=== PATIENT | female | born 1965 | race Caucasian/White ===

== ENCOUNTER 2016-11-26 03:27 | Inpatient (IN) | payer OTHER ==
[~2016-11-26] VITALS: Ht 180.3 cm; Wt 113.5 kg
[~2016-11-26 03:27] MED LIST: ESCI5TAB PO; LISI10TA PO; ONDA8TAB7 PO; PANT40TA3 PO; SUCR1TAB30 PO
[2016-11-26 03:34] VITALS: PULSE 121; RESP 20; O2SAT 98
--- NOTE | 2016-11-26 03:50 | ED.REPORT ---
HPI-Abd Pain F 40 and Over Date of Service Nov 26, 2016 ED Provider: Ferdinand Crump MD Ms. aCgle is a 51 y/o woman who presents today for abdominal pain that started on Tuesday and has worsened tonight at 8:30 PM. It is LUQ and radiates around in a band to her back on the left and to her RUQ. She has a history of pancreatitis and today feels similar to that. She has nausea and vomiting. It is non-bloody emesis. She does not have fever, chills, diarrhea, or dysuria. It gets worse with eating. She has not had much to eat for the past 3 days. In the past when she had pancreatitis, she had to be hospitalized for 7 days and the cause was not identified. She had a CT scan done in 02/2016. She does not drink alcohol and has not missed medications. Nursing Notes Stated Complaint: ABDOMINAL PAIN Chief Complaint: Female Abdominal Pain Nursing Notes Reviewed: Yes Allergies: Coded Allergies: lactose (Verified Adverse Reaction, Severe, 11/26/16) "It makes me sick" Scheduled Escitalopram Oxalate (Lexapro) 5 Mg Tablet 20 MG PO DAILY Gabapentin (Gabapentin) 300 Mg Capsule 300 MG PO TID Lisinopril (Lisinopril) 10 Mg Tablet 10 MG PO BID Scheduled PRN Ondansetron ODT (Zofran ODT) 8 Mg Tablet 8 MG PO Q8H PRN PRN For Nausea Pantoprazole DR (Pantoprazole DR) 40 Mg Tablet.dr 80 MG PO BID PRN PRN For Dyspepsia or Heartburn General Time Seen by MD: 03:47 Chief Complaint Abdominal pain Hx Obtained From: Patient Sudden in Onset?: No Severity: Current: Severe Exacerbated by: Eating Pertinent Negative: Relieved by nothing Past Medical History Past Medical History pancreatitis anxiety GERD hypertension Past Surgical History hiatal hernia repair umbilical hernia repair Reports: Cholecystectomy Smoking History Never Smoker Social History Alcohol Use: Denies alcohol use Drug Use: Denies drug use Other Social History: Ambulatory Status Independent Review of Systems Basic Review of Systems Hematologic: No bleeding, No bruising Skin: No bruising, No rash, No itch Neurologic: NL mental status, No weakness, No numbness Psychiatric: Normal thought content Constitutional: Denies: Chills, Fever Respiratory: Denies: Non-productive cough, Shortness of breath Cardiovascular: Denies: Chest pain, Edema GI: Reports: Abdominal pain, Nausea, Vomiting, Denies: Bloody/tarry stool, Constipation, Diarrhea, Hematemesis, Hematochezia , Melena Female: Denies: Dysuria, Hematuria, Urinary frequency, Urinary urgency, Vaginal bleeding - abnl Musculoskeletal: Reports: Back pain Physical Exam Vital Signs Vital Signs (First) Date Time Temp Pulse Resp B/P Pulse Ox O2 Delivery O2 Flow Rate FiO2 11/26/16 03:34 36.6 121 20 98 Room Air Initial VS: Reviewed Head / Eyes: Atraumatic, Normocephalic ENT: Mucous membranes moist, Conjunctiva normal, No scleral icterus Skin: Warm, Dry, No cyanosis Neurologic: Alert, Oriented, Nonfocal Psychiatric: Mood/affect normal, Behavior normal, Normal thought content Respiratory / Chest: Breath sounds NL, Breath sounds = bilat, No respiratory distress, No rales, No rhonchi, No wheezing Cardiovascular: Heart rate NL, Regular rhythm, Heart sounds NL, No gallop, No murmurs, No rubs Abdomen: Soft, No guarding, No rebound, BS normoactive, No distention, No palpable mass Tenderness/Guarding/Rebound: Positive: Tender LUQ... (Mild) Interpretation & Diagnostics Interpretation & Diagnostics: CT abdomen and pelvis with contrast production supervisor off shift radiology report shows a mildly dilated biliary tree but no obstructing abnormalities seen. Stranding is seen around the pancreas with mild dilated dictation of the main pancreatic duct. On the anterior aspect of the body of the pancreas there is a cystic mass measuring approximately 1.6 x 1.9 x 4 cm. There is minimal fluid around the pancreas extending into the adjacent retroperitoneal space in the mesentery. There is a 17 mm nonobstructing stone in the right renal pelvis. Scattered colonic diverticulosis without evidence of diverticulitis. Conclusion: mild changes of pancreatitis. There is a cystic lesion in the body of the pancreas which probably represents a pseudocyst. This may need follow-up to confirm. There is no evidence of necrosis or other acute complication. Nonobstructing stone in the right renal pelvis. Diverticulosis. Lab Results Interpretation Result Diagram: 11/26/16 0407 11/26/16 0407 Test 11/26/16 04:07 White Blood Count 13.4th/mm3 (3.8-10.1) Red Blood Count 4.99mil/mm3 (3.90-5.20) Hemoglobin 14.0g/dL (12.0-15.6) Hematocrit 43.4% (35.0-46.0) Mean Corpuscular Volume 87.0fL (81-100) Mean Corpuscular Hemoglobin 28.1pg (27.0-35.0) Mean Corpuscular Hemoglobin Concent 32.3% (32.0-37.0) Red Cell Distribution Width 14.6% (12.3-15.4) Platelet Count 249bil/L (150-400) Neutrophils (%) (Auto) 82.0% (40-74) Lymphocytes (%) (Auto) 11.5% (14-46) Monocytes (%) (Auto) 5.2% (4-12) Eosinophils (%) (Auto) 1.0% (0-5) Basophils (%) (Auto) 0.1% (0-3) Sodium Level 140mEq/L (134-144) Potassium Level 3.8mEq/L (3.5-5.2) Chloride Level 101mEq/L (97-108) Carbon Dioxide Level 24mmol/L (18-29) Blood Urea Nitrogen 10mg/dL (6-24) Creatinine 0.65mg/dL (0.57-1.00) Estimat Glomerular Filtration Rate 138mL/min (>59) Glucose Level 180mg/dL (60-99) Calcium Level 8.8mg/dL (8.5-10.1) Magnesium Level 2.0mg/dL (1.6-2.6) Total Bilirubin 0.5mg/dL (0.0-1.2) Aspartate Amino Transf (AST/SGOT) 25U/L (0-50) Alanine Aminotransferase (ALT/SGPT) 35U/L (0-32) Alkaline Phosphatase 154U/L (25-150) Total Protein 7.7g/dL (6.4-8.4) Albumin 3.7g/dL (3.4-5.0) Triglycerides Level 109mg/dL (0-149) Cholesterol Level 163mg/dL (100-199) LDL Cholesterol, Calculated 101.200mg/dL (0-99) VLDL Cholesterol 21.800mg/dL HDL Cholesterol 40mg/dL (>39) Cholesterol/HDL Ratio 4.08 (0.0-4.4) Amylase Level 490U/L (28-100) Lipase 2224U/L (13-60) Hold Ko Top Tube Received (Received) Re-Eval/Medical Decision Med Decision/Clinical Course 1. pancreatitis -Pt has history of pancreatitis -Elevated lipase of 2224 and amylase of 490 today -WBC 13.4 elevated -Pt given 2 liters of normal saline -She is getting Dilaudid and Zofran as needed for pain and for nausea, respectively -Lipid panel within normal limits. -CT abdomen and pelvis shows mild changes of pancreatitis. There is a cystic lesion in the body of the pancreas which probably represents a pseudocyst. Nonobstructing stone in the right renal pelvis Discharge & Departure Shift Change Sign-Out Laboratory Evaluation: Back, reviewed by me Imaging Studies: Done, reviewed by me Primary Impression: Pancreatitis Chronicity: acute Pancreatitis type: unspecified pancreatitis type Qualified Code: K85.9 - Acute pancreatitis, unspecified Additional Impression: Pancreatic pseudocyst Disposition: ADMITTED TO HOSPITAL (accepted at 5:[address] Snowden) Discharge Condition All VS Reviewed: Yes Condition: Stable Referrals: Alona Carter MD (PCP) Attending Statement The patient was seen and examined together with Dr. Rufina Parks and I agree with the history, exam and plan as outlined in the note above. copies to: Alona Carter MD, Marissa L DO Nov 26, 2016 03:50 Ferdinand Crump MD Nov 26, 2016 13:28
[2016-11-26] MEDS: HYDROmorphone 0.5 mg/0.5 mL iSecure Syringe IVPUSH PRN ×3 (04:13→10:45)
[2016-11-26] MEDS: Ondansetron 2 mg/mL 2 mL Inj IVPUSH PRN ×5 (04:13→19:43)
[2016-11-26] MEDS ORDERED: 0.9% Sodium Chloride 1,000 ML IV ONE ×2 (04:15→05:30)
[2016-11-26 04:17] LABS: BASOPHILS % (AUTO) 0.1 % (0-3); MONOCYTES % (AUTO) 5.2 % (4-12); Mean Corpuscular Hemoglobin 28.1 pg (27.0-35.0); Platelet Count 249 bil/L (150-400)
[2016-11-26] MEDS ORDERED: 0.9% Sodium Chloride 1,000 ML IV SCH (06:12)
[2016-11-26] MEDS ORDERED: Alum-Mag Hydrox-Simeth 30 mL Suspension PO PRN ×2 (06:15→11:25)
[2016-11-26 06:39] VITALS: BP 154/93; PULSE 86; RESP 20; O2SAT 100
[2016-11-26 07:04] VITALS: BP 141/80; PULSE 85; RESP 20; O2SAT 97
[2016-11-26] MEDS ORDERED: GABA-502 PO (07:12)
--- NOTE | 2016-11-26 07:15 | NUR ---
Admit nurse: Pt admitted with symptoms of pancreatitis. Flu shot in Jul, reports lactose intolerance. Med rec completed, pt reports taking occasional supplements but is unable to remember names or dosages at this time.
[2016-11-26 08:28] VITALS: BP 153/89; PULSE 98; RESP 20
--- NOTE | 2016-11-26 09:06 | DRSVH ---
PROCEDURE: CT ABDOMEN AND PELVIS WITH CONTRAST (PNL-7102) INDICATIONS: LUQ pain, elevated lipase, possible pancreatitis TECHNIQUE: After the administration of intravenous contrast, 5 mm thick sections acquired from the diaphragm to the symphysis. 5 mm coronal and sagittal reformats were acquired. For radiation dose reduction, the following was used: automated exposure control, adjustment of mA and/or kV according to patient siz e. COMPARISON: [facility], CT, CT ANGIO CHEST PE, 03/15/2016, 8:33. [facility], CT, CT KUB, 03/14/2016, 7:48. [facility], CT, CT ABD PELVIS W CON, 03/13/2016, 2:16. FINDINGS: Image quality: Excellent. ABDOMEN: Lung bases: Lung bases are clear. Heart size is normal. Solid organs: There is peripancreatic stranding in pancreatic head and body consistent with acute pa ncreatitis. No pancreatic calcification. Pancreatic duct is mildly dilated measuring up to 5 mm. No e vidence for pancreatic necrosis. A 1.5 x 2.5 cm cyst is seen anterior to the body of the pancreas. In addition, there is a 8 mm cyst in the tail of the pancreas. Both may represent pseudocysts. Gallbladder is surgically absent. Liver and spleen are normal in size and enhancement. Common bile d uct is moderately dilated measuring up to 10 mm. There is mild intrahepatic biliary dilation. No adr enal nodules. Kidneys demonstrate normal size and enhancement. There is a 12 x 16 mm stone in the right renal pelv is. No hydronephrosis. Peritoneum and bowel: Multiple colonic diverticula are present. There is no evidence for acute diver ticulitis. Bowel loops demonstrate normal wall thickness and caliber. No free fluid or air. Nodes and vessels: No retroperitoneal or mesenteric adenopathy by size criteria. Aorta and inferior vena cava are normal in size. Miscellaneous: A small fat-containing periumbilical ventral hernia is noted. PELVIS: Genitourinary: Bladder wall thickness is normal. Miscellaneous: No inguinal hernias or adenopathy. Bones: No suspicious bony lesions. No vertebral body compression fractures. IMPRESSION: 1. Acute pancreatitis. There is mild pancreatic duct dilation. No evidence for pancreatic necrosis. T wo cysts are seen adjacent to the pancreas, suspicious for pancreatic pseudocyst. 2. Cholecystectomy. There is mild intrahepatic dilation and dilated common bile duct. Please correlat e with serum bilirubin for biliary obstruction. 3. A large non-obstructive stone in the right renal pelvis. 4. Diverticulosis. No active diverticulitis. No significant discrepancy with the dividend deposit entry clerk radiology preliminary report. Dictated by: Camryn Alvarado M.D. on 11/26/2016 at 8:49 Approved by: Camryn Alvarado M.D. on 11/26/2016 at 9:04
[2016-11-26] MEDS ORDERED: Polyethylene Glycol (PEG) 17 Gm Powder PO PRN (11:25)
[2016-11-26] MEDS: Dextrose 5% 0.45% NaCl 1,000 ML IV SCH ×2 (12:06→23:11)
[2016-11-26 13:54] LABS: APPEARANCE,URINE HAZY (CLEAR,HAZY); COLOR,URINE YELLOW (YELLOW); OCCULT BLOOD,URINE MODERATE (NEGATIVE); PH,URINE 5.5 (5.0-8.0)
[2016-11-26 13:55] LABS: UROBILINOGEN,URINE NORMAL (NORMAL)
[2016-11-26 14:33] VITALS: BP 148/84; PULSE 85; RESP 20; O2SAT 99
--- NOTE | 2016-11-26 15:25 | NUR ---
Social Work Screen Note: Patient is a 51 year old female admitted on 11/26/16 for pancreatitis. Patient payer as [employer]. Patient PCP as MD Carter. Patient has extermination supervisor disability. Patient has no VA benefits. Patient resides in [facility] with Julián, who is able to provide support and care. Patient resides in single [place]. [facility]. Patient has no previous HHC, SNF, or DME history. Patient states that she still drives and is independent with needs at home. Patient has no AD and declined form. Patient states having no identified discharge needs at this time. SW to follow if further needs arise. SW to follow. PLAN: Home with , via POV, pending clinical course Maribel VELOZ
--- NOTE | 2016-11-26 16:53 | NUR ---
GI/ACTIVITY Patient rated her pain as 9/10 on her L abdomen. Dilaudid IVP administered, which has been helpful. She complains of nausea and has been retching. No emesis at this time. Zofran was already administered. Not effective at this time. MD made aware. Denies SOB. Patient was able to ambulate with SBA in the room. Gait is steady. Voiding without any problems. Addendum: 11/26/16 at 1702 by KAREN ANTUNEZ RN PAIN Dilaudid was switched to Morphine IV. Morphine 2-4 mg IVP administered for complaints of pain, which was helpful.
[2016-11-26] MEDS ORDERED: hydrALAZINE 20 mg/mL Inj IV PRN (18:55)
--- NOTE | 2016-11-26 18:59 | PCM.HPMED ---
Subjective Date of Service Nov 26, 2016 Primary Provider: Admitting Physician: Abhi Snowden MD Primary Care Physician: Alona Carter MD Attending Physician: Abhi Snowden MD Chief Complaint: abdominal pain History of Present Illness: 51 year old female with Hypertension, Obesity, Anxiety and first episode of pancreatitis about one year ago of unclear etiology at the time who presents to the ED complaining of severe epigastric abdominal pain, nausea and dry heaves that started about 2-3 days ago. Denies any new medications, alcohol use or travels. Allergies Coded Allergies: lactose (Verified Adverse Reaction, Severe, 11/26/16) "It makes me sick" Home Medications Lisinopril 10 Mg PO BID 30 Days Escitalopram Oxalate 20 Mg PO DAILY 30 Days Gabapentin 300 Mg PO TID Ondansetron ODT 8 Mg PO Q8H PRN Pantoprazole DR 80 Mg PO BID PRN Exam Vital Signs & I/O Vital Sign- Last 8 Hours Date Time Temp Pulse Resp B/P Pulse Ox O2 Delivery O2 Flow Rate FiO2 11/26/16 14:33 36.8 85 20 148/84 99 Room Air Intake and Output- Last 8 Hour 11/26/16 Cumulative From/Thru 07:00 11/26/16 03:34 - 11/26/16 05:37 Intake Total 2000 ml 2000 ml Balance 2000 ml 2000 ml IV Total 2000 ml 2000 ml Lab & Micro Results Laboratory Tests Test 11/26/16 04:07 11/26/16 13:28 White Blood Count 13.4th/mm3 (3.8-10.1) Red Blood Count 4.99mil/mm3 (3.90-5.20) Hemoglobin 14.0g/dL (12.0-15.6) Hematocrit 43.4% (35.0-46.0) Mean Corpuscular Volume 87.0fL (81-100) Mean Corpuscular Hemoglobin 28.1pg (27.0-35.0) Mean Corpuscular Hemoglobin Concent 32.3% (32.0-37.0) Red Cell Distribution Width 14.6% (12.3-15.4) Platelet Count 249bil/L (150-400) Neutrophils (%) (Auto) 82.0% (40-74) Lymphocytes (%) (Auto) 11.5% (14-46) Monocytes (%) (Auto) 5.2% (4-12) Eosinophils (%) (Auto) 1.0% (0-5) Basophils (%) (Auto) 0.1% (0-3) Sodium Level 140mEq/L (134-144) Potassium Level 3.8mEq/L (3.5-5.2) Chloride Level 101mEq/L (97-108) Carbon Dioxide Level 24mmol/L (18-29) Blood Urea Nitrogen 10mg/dL (6-24) Creatinine 0.65mg/dL (0.57-1.00) Estimat Glomerular Filtration Rate 138mL/min (>59) Glucose Level 180mg/dL (60-99) Calcium Level 8.8mg/dL (8.5-10.1) Magnesium Level 2.0mg/dL (1.6-2.6) Total Bilirubin 0.5mg/dL (0.0-1.2) Aspartate Amino Transf (AST/SGOT) 25U/L (0-50) Alanine Aminotransferase (ALT/SGPT) 35U/L (0-32) Alkaline Phosphatase 154U/L (25-150) Total Protein 7.7g/dL (6.4-8.4) Albumin 3.7g/dL (3.4-5.0) Triglycerides Level 109mg/dL (0-149) Cholesterol Level 163mg/dL (100-199) LDL Cholesterol, Calculated 101.200mg/dL (0-99) VLDL Cholesterol 21.800mg/dL HDL Cholesterol 40mg/dL (>39) Cholesterol/HDL Ratio 4.08 (0.0-4.4) Amylase Level 490U/L (28-100) Lipase 2224U/L (13-60) Hold Ko Top Tube Received (Received) Urine Color Yellow (YELLOW) Urine Appearance Hazy (CLEAR,HAZY) Urine pH 5.5 (5.0-8.0) Urine Specific [place] 1.020 (1.003-1.035) Urine Protein Negativemg/dL (NEG,TRACE) Urine Glucose (UA) Negativemg/dL (NEGATIVE) Urine Ketones Tracemg/dL (NEGATIVE) Urine Occult Blood Moderate (NEGATIVE) Urine Nitrite Negative (NEGATIVE) Urine Bilirubin Negative (NEGATIVE) Urine Urobilinogen Normalmg/dL (NORMAL) Urine Leukocyte Esterase Negative (NEGATIVE) Urine RBC 0-2/hpf (0-2) Urine WBC 0-5/hpf (0-5) Urine Epithelial Cells Occasional/hpf (NONE-MOD) Urine Crystals None seen (NONE SEEN) Urine Bacteria Few/hpf (NONE-FEW) Urine Hyaline Casts None/lpf (NONE) Urine Granular Casts None seen (NONE SEEN) Urine Waxy Casts None seen (NONE SEEN) Urine Red Blood Cell Casts None seen (NONE SEEN) Urine White Blood Cell Casts None seen (NONE SEEN) Urine Mucus None seen (None Seen) Urine Trichomonas None seen (NONE SEEN) Urine Yeast None (NONE SEEN) Urinalysis Comment None Urine Culture Reflexed Not indicated Result Diagram: 11/26/1640611/26/16406 Review of Systems: Constitutional: Negative, except as otherwise mentioned in the history above. Ophthalmologic: Negative, except as otherwise mentioned in the history above. Cardiovascular: Negative, except as otherwise mentioned in the history above. Respiratory: Negative, except as otherwise mentioned in the history above. Gastrointestinal: Negative, except as otherwise mentioned in the history above. Genitourinary: Negative, except as otherwise mentioned in the history above. Musculoskeletal: Negative, except as otherwise mentioned in the history above. Neurological: Negative, except as otherwise mentioned in the history above. Psychiatric: Negative, except as otherwise mentioned in the history above. Hematologic/Lymphatic: Negative, except as otherwise mentioned in the history above. Allergic/Immunologic: Negative, except as otherwise mentioned in the history above. PMH Hypertension Obesity Depression GERD Head aches Chronic back pain due to spinal stenosis Anxiety Biliary dyskinesia Pancreatitis (first episode in February 2016) Surgical History Lap Cholecystectomy 05/02/15 Family History No history of Colon Cancer, No Pancreatic cancers Father was smoker and from lung cancer in his 60's Social History Hx Alcohol Use: No Hx Substance Use: No Hx Tobacco Use: No Smoking Status: Never Smoker Exam Vital Signs Vital Sign - Last Date Time Temp Pulse Resp B/P Pulse Ox O2 Delivery O2 Flow Rate FiO2 11/26/16 14:33 36.8 85 20 148/84 99 Room Air Intake and Output 11/25/16 11/25/16 11/26/16 Cumulative From/Thru 15:00 23:00 07:00 11/26/16 03:34 - 11/26/16 05:37 Intake Total 2000 ml 2000 ml Balance 2000 ml 2000 ml IV Total 2000 ml 2000 ml Exam General: Alert, Oriented X3, Cooperative, Moderate acute Distress Eyes: PERRLA, Scleral Anicteric Mouth: Mouth Normal, Mucous Membranes Moist/[place] Neck: Supple, no Thyromegaly, trachea central. Chest & Lungs: Clear to auscultation & percussion, No adventitious breath sounds, no crackles, no wheeze Cardiovascular: Normal S1, Normal S2, No Murmurs/Rubs/Gallops, Regular Rate/ Rhythm, (No JVD, no peripheral edema) Pulses: Radial (present and equal), Dorsalis Pedi (present and equal) Abdomen: Obese, Diffuse epigastric pain, mild guarding but no rebound. Normal bowel tones Musculoskeletal: Unremarkable. Normal range of motion, no swollen or erythematous joints Extremities: No edema, no cyanosis, no clubbing. Skin: No rashes. Warm and dry, no erythematous areas. NO Carlos or Trivedi signs Neurological: Grossly neurologically intact, Normal Speech, Sensation Intact Lymphatic: Lymph nodes Cervical and Axillary not palpable. Lab and Diagnostics Result Diagram: 11/26/1640611/26/16406 X-Rays, CTs and MRIs Date of Service: 11/26/16529 PROCEDURE: CT ABDOMEN AND PELVIS WITH CONTRAST ([id number]) IMPRESSION: 1. Acute pancreatitis. There is mild pancreatic duct dilation. No evidence for pancreatic necrosis. Two cysts are seen adjacent to the pancreas, suspicious for pancreatic pseudocyst. 2. Cholecystectomy. There is mild intrahepatic dilation and dilated common bile duct. Please correlate with serum bilirubin for biliary obstruction. 3. A large non-obstructive stone in the right renal pelvis. 4. Diverticulosis. No active diverticulitis. No significant discrepancy with the operation shift supervisor radiology preliminary report. Dictated by: Camryn Alvarado M.D. on 11/26/2016 at 8:49 Approved by: Camryn Alvarado M.D. on 11/26/2016 at 9:04 Assessment & Plan 50 year old female with Hypertension, Obesity, Anxiety who presents to the ED complaining of sudden onset severe epigastric abdominal pain. # Acute Pancreatitis. Present on admission - Etiology is unclear but possibly due to side effect Lisinopril. No Alcohol use and she has no gallbladder and no Hypertriglyceridemia - nothing my mouth except ice and sips of water - pain control with IV morphine as needed - IV fluids resuscitations - consider Gastroenterology consult if no improvement 2. Leukocytosis. Acute - possible early signs of Systemic Inflammatory Response due to Pancreatitis - monitor closely for any signs of infections 3. Hypertension - elevated due to pain - stop Lisinopril for now - cover with prn IV Hydralazine for now 4. Depression - continuing Lexapro 5. Obesity - pt has lost weight recently with modifying diet - Acetaminophen as needed for mild pain/fever/headache - Bowel regimen as needed - Antiemetic as needed Patient admitted under inpatient status with expected length of stay > 2 midnights for severity of present symptoms, complexities of treatment plan and risk for adverse event . Resuscitation Status: CPR: Attempt Resuscitation (discussed and verified with patient) GI Prophylaxis: Proton Pump Inhibitor VTE Prophylaxis: Sub-Q Heparin (Unfractionated) VTE Mechanical Devices: Intermittant Pneumatic CD Resuscitation Status: CPR: Attempt Resuscitation Time spent 60 min Jorge Alas Nov 26, 2016 18:59
[2016-11-26 20:05] VITALS: BP 148/88; PULSE 76; RESP 20; O2SAT 93
[2016-11-26] MEDS: Insulin Human REGular 300 Unit/3 mL Inj SUBQ SCH (21:12)
--- NOTE | 2016-11-26 22:16 | NUR ---
PAIN Nausea and Pain reported start of shift 07/10. PRNs effective. IV site became occluded, IV therapy notified, new IV site started. Independently OOB frequently.
[2016-11-27 00:43] VITALS: BP 141/84; PULSE 75; RESP 18; O2SAT 96
[2016-11-27] MEDS: Dextrose 5% 0.45% NaCl 1,000 ML IV SCH ×2 (01:29→13:47)
[2016-11-27] MEDS: Insulin Human REGular 300 Unit/3 mL Inj SUBQ SCH ×3 (03:51→14:30)
[2016-11-27 05:07] VITALS: BP 124/77; PULSE 80; RESP 18; O2SAT 96
[2016-11-27 06:27] LABS: Mean Corpuscular Hemoglobin 27.4 pg (27.0-35.0); Mean Corpuscular Volume 87.2 fL (81-100)
[2016-11-27 07:02] LABS: INR 1.11 ratio
[2016-11-27] MEDS ORDERED: Pantoprazole 4 mg/mL 10 mL Inj IVPUSH SCH (07:30)
[2016-11-27] MEDS: MetoCLOpramide 5 mg/mL 2 mL Inj IVPUSH PRN ×2 (08:35→14:37)
[2016-11-27 09:31] VITALS: BP 143/84; PULSE 75; RESP 18; O2SAT 98
[2016-11-27] MEDS: Ondansetron 2 mg/mL 2 mL Inj IVPUSH PRN ×4 (10:48→19:52)
[2016-11-27 12:42] VITALS: BP 160/92; PULSE 81; RESP 18; O2SAT 99
--- NOTE | 2016-11-27 15:49 | PCM.PNMED ---
Subjective Date of Service Nov 27, 2016 Subjective reports worsening abdominal pain today. no n/v/diarrhea Exam Vital Signs Vital Sign - Last Date Time Temp Pulse Resp B/P Pulse Ox O2 Delivery O2 Flow Rate FiO2 11/27/16 12:42 36.9 81 18 160/92 99 Room Air Intake and Output 11/26/16 11/26/16 11/27/16 Cumulative From/Thru 15:00 23:00 07:00 11/26/16 03:34 - 11/27/16 05:37 Intake Total 853 ml 832 ml 3685 ml Output Total 300 ml 250 ml 550 ml Balance 553 ml 582 ml 3135 ml Intake Oral 0 ml 0 ml 0 ml IV Total 853 ml 832 ml 3685 ml Output Urine Total 300 ml 250 ml 550 ml # Voids 1 1 # Bowel Movements 0 0 0 General: Alert, Cooperative, No Acute Distress Eyes: Scleral Anicteric Mouth: Mucous Membr Moist/[place] Neck: Supple Chest & Lungs: Chest Wall Normal, Clear to auscultation & percussion Cardiovascular: Regular Rate/Rhythm Abdomen: Tender, Non-distended, Normoactive bowel tones, Soft Extremities: No cyanosis/clubbing/edma bilat Neurological: Grossly Neurologically Intact, Normal Speech IVs and Medications Medications Reviewed: Medications were reviewed in detail Lab and Diagnostics Result Diagram: 11/27/1661211/27/16612 X-Rays, CTs and MRIs Date of Service: 11/26/16 0530 PROCEDURE: CT ABDOMEN AND PELVIS WITH CONTRAST ([id number]) IMPRESSION: 1. Acute pancreatitis. There is mild pancreatic duct dilation. No evidence for pancreatic necrosis. Two cysts are seen adjacent to the pancreas, suspicious for pancreatic pseudocyst. 2. Cholecystectomy. There is mild intrahepatic dilation and dilated common bile duct. Please correlate with serum bilirubin for biliary obstruction. 3. A large non-obstructive stone in the right renal pelvis. 4. Diverticulosis. No active diverticulitis. No significant discrepancy with the restaurant shift leader radiology preliminary report. Dictated by: Camryn Alvarado M.D. on 11/26/2016 at 8:49 Approved by: Camryn Alvarado M.D. on 11/26/2016 at 9:04 Assessment & Plan 50 year old female with Hypertension, Obesity, Anxiety who presents to the ED complaining of sudden onset severe epigastric abdominal pain. # Acute Pancreatitis. Present on admission - Etiology is unclear but possibly due to side effect Lisinopril. No Alcohol use and she has no gallbladder and no Hypertriglyceridemia - c/w NPO and supportive care # Acute and worsening transaminitis - unclear etiology - pt is post cholecystectomy - consider Gastroenterology consult given acute rising LFTs! # Leukocytosis. Acute. Resolved - likely reactive # Hypertension - elevated due to pain - stop Lisinopril for now - cover with prn IV Hydralazine for now # Depression - continuing Lexapro # Obesity - pt has lost weight recently with modifying diet Dispo: 2-3 days GI Prophylaxis: Proton Pump Inhibitor VTE Prophylaxis: Sub-Q Heparin (Unfractionated) VTE Mechanical Devices: Intermittant Pneumatic CD Resuscitation Status: CPR: Attempt Resuscitation Time spent 35 min Jorge Alas Nov 27, 2016 15:49
[2016-11-27] MEDS ORDERED: levoFLOXacin Dose Per Pharmacist XX ONE (16:05)
--- NOTE | 2016-11-27 16:49 | NUR ---
Nausea/Pain/PO Medications Pt with sudden onset nausea/retching at 0830 with increased pain as a result. IVP Reglan with IVP Morphine given. at bedside. On reassessment, pt up in shower, per 'feeling much better.' Pt later stating that she felt Reglan was more effective than the Zofran. Oral AM medications held off and till pt feeling like she would be able to tolerate paramedic. Readdressed 3-4 times throughout shift. Pt with continued bouts of nausea/pain, not comfortable with taking medications thus far. Pt requiring IVP Morphine q3h as it has been ordered - pt massaging and meditating in attempt to decrease pain. Offered hot pack to pt, pt stated effective. Kpad provided. Care continues.
[2016-11-27] MEDS ORDERED: 0.9% Sodium Chloride 250 ML ONE (17:11)
[2016-11-27 17:44] VITALS: BP 137/77; PULSE 82; RESP 18; O2SAT 97
[2016-11-27] MEDS ORDERED: Dextrose 5% 0.9% NaCl 1,000 ML IV SCH (18:00)
[2016-11-27] MEDS ORDERED: Levofloxacin 750 mg/150 mL D5W IV SCH (18:00)
--- NOTE | 2016-11-27 18:27 | NUR ---
OFF UNIT to MRI for MRCP at 1805. A&Ox3, FREITAS, IV SL, Pain present but tolerable, present and spoke with pt briefly about plan to transfer, Pt and agreeable - pt looking overwhelmed. accompanied. Pt left via w/c - chart remained behind. Await pt return. Addendum: 11/27/16 at 1844 by DREA DUGAN RN Returned to unit at 1840; IVF started - Levaquin infusing.
--- NOTE | 2016-11-27 18:57 | DRSVH ---
PROCEDURE: MR ABDOMEN MRCP INDICATIONS: abd pain, acute rising LFTs TECHNIQUE: Coronal HASTE through the abdomen, axial 2-D FLASH in- and [id number], and breath-hold T2 FSE with fat saturation through the biliary system and pancreas. Oblique coronal and axial thin-slice HASTE, radial thick-slab HASTE centered on the extrahepatic bile ducts. Intravenous secretin: Not requested. COMPARISON: [facility], CT, CT ABD PELVIS W CON, 03/13/2016, 2:16. [facility], CT, CT ABD PELVIS W CON, 11/26/2016, 5:52. FINDINGS: Image quality: Excellent. Pancreas and biliary system: Intra-hepatic biliary ducts are non dilated, but the extrahepatic bile duct measures up to 12 mm in dimension. This was previously the case during prior CT scanning, . A mass lesion at the common duct or ampulla, or within the pancreas, is not seen. Pancreas is n ormal in morphology, without adjacent soft tissue edema. Pancreatic duct is normal in caliber, witho ut developmental anomalies. Gallbladder has been previously resected. Other solid organs: Liver and spleen are normal in size. No adrenal nodules. Both kidneys are norm al in size, without hydronephrosis, but there is a large renal collecting system calculus that appear s nonobstructing at the right kidney, within the pelvis, previously documented 03/13/16 and measuring up to 1.6 cm in dimension. This still appears nonobstructing, however. Nodes and vessels: No retroperitoneal or mesenteric adenopathy by size criteria. Aorta and inferior vena cava are normal in size. Bowel and peritoneum: Unenhanced bowel loops are normal in caliber. No free fluid. Lung bases: No basal pleural effusions. Heart size is normal. Bones and soft tissues: No ventral hernias. Bone marrow is of normal overall signal. IMPRESSION: Prior cholecystectomy. Prominence of the common bile but measuring up to 1.2 cm in diam eter but this was previously present during CT scanning in february of last year. Also, during that prior CT a large 1.6 cm calculus was seen to be nonobstructing within the right renal pelvis, and that str ucture is again seen and also not found to be obstructive, at this time. No pancreatic mass lesion is found, no hepatic mass lesion or inflammation is visualized. Dictated by: Manjinder Dixon M.D. on 11/27/2016 at 18:45 Approved by: Manjinder Dixon M.D. on 11/27/2016 at 18:56
--- NOTE | 2016-11-27 19:36 | PCM.DC.MED ---
Discharge Summary Date of Service Nov 27, 2016 Dates of Hospitalization Date of Hospital Admission Nov 26, 2016 at 06:01 Date of Discharge: Nov 27, 2016 Providers: Admitting Physician: Abhi Snowden MD Primary Care Physician: Alona Carter MD Attending Physician: Abhi Snowden MD Diagnosis at Time of Discharge Diagnosis at Time of Discharge # Acute Pancreatitis. Present on admission. ongoing # Acute and worsening transaminitis of unclear etiology # Leukocytosis. Acute. Resolved # Hypertension. stable # Depression. stable # Obesity Procedures XRay, CTs & MRIs Date of Service: 11/26/16 0530 PROCEDURE: CT ABDOMEN AND PELVIS WITH CONTRAST ([id number]) IMPRESSION: 1. Acute pancreatitis. There is mild pancreatic duct dilation. No evidence for pancreatic necrosis. Two cysts are seen adjacent to the pancreas, suspicious for pancreatic pseudocyst. 2. Cholecystectomy. There is mild intrahepatic dilation and dilated common bile duct. Please correlate with serum bilirubin for biliary obstruction. 3. A large non-obstructive stone in the right renal pelvis. 4. Diverticulosis. No active diverticulitis. No significant discrepancy with the night club manager radiology preliminary report. Dictated by: Camryn Alvarado M.D. on 11/26/2016 at 8:49 Approved by: Camryn Alvarado M.D. on 11/26/2016 at 9:04 Brief History 51 year old female with Hypertension, Obesity, Anxiety who presents to the ED complaining of sudden onset severe epigastric abdominal pain. Hospital Course # Acute Pancreatitis. Present on admission - Etiology is unclear but possibly due to side effect Lisinopril. No Alcohol use and she has no gallbladder and no Hypertriglyceridemia - c/w NPO and supportive care # Acute and worsening transaminitis - unclear etiology - pt is post cholecystectomy - discussed case with our GI consult (Dr. Barrett) who recommended STAT MRCP and transferring patient to another hospital for consideration of ERCP (not available at our hospital this weekend). - Discussed patient with [employer] (her insurance) transfer line and patient accepted for transfer to [facility] (pramod MD: Dr. Maximilian Brooks) . patient is also in agreement with this plan # Leukocytosis. Acute. Resolved - likely reactive # Hypertension - elevated due to pain - stop Lisinopril for now - cover with prn IV Hydralazine for now # Depression - continuing Lexapro # Obesity - pt has lost weight recently with modifying diet Exam Vital Signs (Last) Date Time Temp Pulse Resp B/P Pulse Ox O2 Delivery O2 Flow Rate FiO2 11/27/16 17:44 37.3 82 18 137/77 97 Room Air Test 11/26/16 04:07 11/26/16 13:28 11/27/16 06:13 11/27/16 17:02 Neutrophils (%) (Auto) 82.0% (40-74) Lymphocytes (%) (Auto) 11.5% (14-46) Monocytes (%) (Auto) 5.2% (4-12) Eosinophils (%) (Auto) 1.0% (0-5) Basophils (%) (Auto) 0.1% (0-3) Hemoglobin A1c 6.5% (4.8-5.6) Magnesium Level 2.0mg/dL (1.6-2.6) Triglycerides Level 109mg/dL (0-149) Cholesterol Level 163mg/dL (100-199) LDL Cholesterol, Calculated 101.200mg/dL (0-99) VLDL Cholesterol 21.800mg/dL HDL Cholesterol 40mg/dL (>39) Cholesterol/HDL Ratio 4.08 (0.0-4.4) Amylase Level 490U/L (28-100) Hold Ko Top Tube Received (Received) Urine Color Yellow (YELLOW) Urine Appearance Hazy (CLEAR,HAZY) Urine pH 5.5 (5.0-8.0) Urine Specific [place] 1.020 (1.003-1.035) Urine Protein Negativemg/dL (NEG,TRACE) Urine Glucose (UA) Negativemg/dL (NEGATIVE) Urine Ketones Tracemg/dL (NEGATIVE) Urine Occult Blood Moderate (NEGATIVE) Urine Nitrite Negative (NEGATIVE) Urine Bilirubin Negative (NEGATIVE) Urine Urobilinogen Normalmg/dL (NORMAL) Urine Leukocyte Esterase Negative (NEGATIVE) Urine RBC 0-2/hpf (0-2) Urine WBC 0-5/hpf (0-5) Urine Epithelial Cells Occasional/hpf (NONE-MOD) Urine Crystals None seen (NONE SEEN) Urine Bacteria Few/hpf (NONE-FEW) Urine Hyaline Casts None/lpf (NONE) Urine Granular Casts None seen (NONE SEEN) Urine Waxy Casts None seen (NONE SEEN) Urine Red Blood Cell Casts None seen (NONE SEEN) Urine White Blood Cell Casts None seen (NONE SEEN) Urine Mucus None seen (None Seen) Urine Trichomonas None seen (NONE SEEN) Urine Yeast None (NONE SEEN) Urinalysis Comment None Urine Culture Reflexed Not indicated White Blood Count 10.0th/mm3 (3.8-10.1) Red Blood Count 4.53mil/mm3 (3.90-5.20) Hemoglobin 12.4g/dL (12.0-15.6) Hematocrit 39.5% (35.0-46.0) Mean Corpuscular Volume 87.2fL (81-100) Mean Corpuscular Hemoglobin 27.4pg (27.0-35.0) Mean Corpuscular Hemoglobin Concent 31.4% (32.0-37.0) Red Cell Distribution Width 14.2% (12.3-15.4) Platelet Count 213bil/L (150-400) Prothrombin Time 11.9sec (8.1-12.5) Prothromb Time International Ratio 1.11ratio Activated Partial Thromboplast Time 29.6sec (22.8-33.0) Lipase 1009U/L (13-60) Sodium Level 141mEq/L (134-144) Potassium Level 4.2mEq/L (3.5-5.2) Chloride Level 102mEq/L (97-108) Carbon Dioxide Level 27mmol/L (18-29) Blood Urea Nitrogen 3mg/dL (6-24) Creatinine 0.52mg/dL (0.57-1.00) Estimat Glomerular Filtration Rate 179mL/min (>59) Glucose Level 178mg/dL (60-99) Calcium Level 8.6mg/dL (8.5-10.1) Total Bilirubin 2.5mg/dL (0.0-1.2) Aspartate Amino Transf (AST/SGOT) 118U/L (0-50) Alanine Aminotransferase (ALT/SGPT) 187U/L (0-32) Alkaline Phosphatase 292U/L (25-150) Total Protein 6.5g/dL (6.4-8.4) Albumin 3.2g/dL (3.4-5.0) Discharge Medications Discharge Medications Escitalopram Oxalate (Lexapro) 5 Mg Tablet 20 MG PO DAILY (Reported) Gabapentin (Gabapentin) 300 Mg Capsule 300 MG PO TID (Reported) Lisinopril (Lisinopril) 10 Mg Tablet 10 MG PO BID (Reported) As needed Ondansetron ODT (Zofran ODT) 8 Mg Tablet 8 MG PO Q8H PRN PRN For Nausea ( Reported) Pantoprazole DR (Pantoprazole DR) 40 Mg Tablet.dr 80 MG PO BID PRN PRN For Dyspepsia or Heartburn (Reported) Followup Plan Disposition: [facility] Time spent 40 min copies to: Alona Carter MD, Masoud Nov 27, 2016 19:36
--- NOTE | 2016-11-27 20:17 | NUR ---
RN REPORT prior TRANSFER NOC RN calling [facility] to give report on pending transfer. This RN intercepted call as this RN had had patient for previous 12hrs. Report given to Juvenal. Let RN know that this RN was going off shift and is aware of current NOC RN name if any questions re: pt should arise.
--- NOTE | 2016-11-27 21:01 | NUR ---
TRANSFER Patient signed paperwork accepting transfer to [facility], transportation arrived at 2030. Patient left with all belongings via gurney. Pre medicated for pain and nausea.
== END 2016-11-27 18:50 | disposition short-term general hospital (02) | DRG 440 ==
LOC: SED 03:27 → OSC 06:01
PROVIDERS: ADMIT Hospitalist; ATTEND Internal Medicine
DX: K85.90 Acute pancreatitis without necrosis or infection, unspecified (principal); I10 Essential (primary) hypertension; F32.9 Major depressive disorder, single episode, unspecified; K21.9 Gastro-esophageal reflux disease without esophagitis; F41.9 Anxiety disorder, unspecified; E66.9 Obesity, unspecified; Z68.34 Body mass index [BMI] 34.0-34.9, adult; R74.0 Nonspecific elevation of levels of transaminase and lactic acid dehydrogenase [LDH]